=== PATIENT | male | born 1960 | race Caucasian/White ===

== ENCOUNTER 2020-03-01 23:27 | Inpatient (IN) | payer OTHER ==
[~2020-03-01] VITALS: Ht 177.8 cm; Wt 50.1 kg
[2020-03-01] MEDS ORDERED: SODIUM CHLORIDE 0.9% 1,000 ML IV ONE (23:29)
[2020-03-01] MEDS ORDERED: AZITHROMYCIN 500 MG in SODIUM CHLORIDE 0.9% 250 ML IV ONE (23:30)
[2020-03-01] MEDS ORDERED: PROPOFOL 100 ML IV PRN (23:30)
[2020-03-01] MEDS ORDERED: PROPOFOL 100 ML IV ONE (23:31)
[2020-03-01] MEDS ORDERED: MIDAZOLAM 1 MG/ML, 5ML ONE (23:35)
[2020-03-01] MEDS ORDERED: PLEASE ENTER HEIGHT AND WEIGHT MC SCH (23:45)
--- NOTE | 2020-03-02 00:10 | NUR ---
PT SWABBED FOR FLU AND COVID19. DUE TO SWAB, PT HAS BLOOD FROM BILAT NARES AND RESPONDS TO PAINFUL STUMULI. PT CLEANED AND BLEEDING CONTROLLED. NG TUBE CONNECTED TO MED CONT SUCTION WITH MINIMAL OUTPUT. ABDI CATH COLLECTING CLEAR YELLOW URINE. PT APPEARS AT EASE ON VENT. VSS.
[2020-03-02 00:13] LABS: RAPID INFLUENZA A Negative (Negative); RAPID INFLUENZA B Negative (Negative)
[2020-03-02] MEDS ORDERED: TORS20TA2 PO (00:46)
[2020-03-02] MEDS ORDERED: METH4TAB2 PO (00:46)
[2020-03-02] MEDS ORDERED: ALLO100T30 PO (00:46)
[2020-03-02] MEDS ORDERED: OMNIPAQUE 350 MG/ML, 75ML BOTTLE ONE (01:47)
[2020-03-02] MEDS ORDERED: PHARMACY MAY ADJ FOR RENAL FX MC PRN (03:00)
[2020-03-02] MEDS ORDERED: THIAMINE 200 MG in SODIUM CHLORIDE 0.9% 50 ML IV ONE (03:00)
[2020-03-02] MEDS ORDERED: FAMOTIDINE 20 MG/2 ML IV SCH (03:00)
[2020-03-02] MEDS ORDERED: hydrALAzine 20 MG/ML, 1ML IVPush PRN (03:00)
[2020-03-02] MEDS ORDERED: HEPARIN 5,000 UNITS/ML, 1ML SQ SCH ×2 (03:00→07:00)
[2020-03-02] MEDS ORDERED: LACTATED RINGERS 1,000 ML IV SCH (03:00)
[2020-03-02] MEDS ORDERED: ACETAMINOPHEN 650 MG SUPP PR PRN (03:00)
[2020-03-02] MEDS ORDERED: ONDANSETRON 2MG/ML, 2ML IVPush PRN (03:00)
[2020-03-02] MEDS: AZITHROMYCIN 500 MG in SODIUM CHLORIDE 0.9% 250 ML IV SCH (03:25)
[2020-03-02 03:58] LABS: BASOPHILS # (AUTO) 0.03 x10^3/uL (0-0.1); BASOPHILS % (AUTO) 0 % (0-1); EOSINOPHILS % (AUTO) 0 % (1-7); LYMPHOCYTES # (AUTO) 0.49 x10^3/uL (1-3.4); LYMPHOCYTES % (AUTO) 5 % (22-44); MD NO; MEAN CORPUSCULAR HEMOGLOBIN 31.1 pg (27.5-34.5); MEAN CORPUSCULAR HGB CONC 31.5 g/dL (33.2-36.2); MEAN CORPUSCULAR VOLUME 98.9 fL (81-97); MEAN PLATELET VOLUME 10.8 fL (7.4-10.4); MONOCYTES # (AUTO) 0.08 x10^3/uL (0.2-0.8); MONOCYTES % (AUTO) 1 % (2-9); NEUTROPHILS # (AUTO) 9.86 x10^3/uL (1.8-6.8); NEUTROPHILS % (AUTO) 94 % (42-75); PLATELET COUNT 135 x10^3/uL (130-400); RED BLOOD COUNT 3.71 x10^6/uL (4.38-5.82); RED CELL DISTRIBUTION WIDTH 17.2 % (9.4-14.8)
[2020-03-02 04:11] LABS: ALBUMIN 2.6 g/dL (3.4-5.0); ANION GAP 6 mmol/L (5-15); CALCIUM 8.2 mg/dL (8.5-10.1); CHLORIDE 112 mmol/L (98-107); D-DIMER 1.54 ug/mlFEU (0.00-0.52); INTERNATIONAL NORMALIZED RATIO 1.26 (0.93-1.1); PROTHROMBIN TIME 13.4 Seconds (9.6-11.5)
[2020-03-02 04:14] LABS: ALANINE AMINOTRANSFERASE 28 U/L (12-78); ALKALINE PHOSPHATASE 168 U/L (45-117); BILIRUBIN,TOTAL 0.5 mg/dL (0.2-1.0); CREATININE 1.42 mg/dL (0.7-1.3); TOTAL PROTEIN 6.2 g/dL (6.4-8.2); TRIGLYCERIDES 59 mg/dL (50-200)
[2020-03-02 04:56] VITALS: BP 187/93
[2020-03-02 06:49] LABS: AMPHETAMINE SCREEN, URINE Negative (Negative); BARBITURATE SCREEN, URINE Negative (Negative); BENZODIAZEPINE SCREEN, URINE Positive (Negative); CANNABINOID SCREEN, URINE Negative (Negative); COCAINE SCREEN, URINE Negative (Negative); METHADONE SCREEN, URINE Negative (Negative); OPIATE SCREEN, URINE Negative (Negative)
[2020-03-02] MEDS ORDERED: PROPOFOL 100 ML IV PRN (06:57)
[2020-03-02] MEDS ORDERED: NOREPINEPHRINE 8 MG in SODIUM CHLORIDE 0.9% 242 ML IV PRN (06:57)
[2020-03-02] MEDS ORDERED: GLUCAGON 1 MG IM PRN ×2 (07:00→11:00)
[2020-03-02] MEDS ORDERED: DEXTROSE 4 GM TAB.CHEW PO PRN ×2 (07:00→11:00)
[2020-03-02] MEDS ORDERED: DEXTROSE 50%, 50ML SYRINGE IVPush PRN ×2 (07:00→11:00)
[2020-03-02] MEDS ORDERED: LACTULOSE 20 GM/30 ML UDC NG PRN (07:00)
[2020-03-02] MEDS ORDERED: ACETAMINOPHEN 650 MG/20.3 ML UDC PO/NG PRN (07:00)
[2020-03-02] MEDS: FAMOTIDINE 20 MG/2 ML IV SCH ×2 (07:00→19:50)
[2020-03-02] MEDS ORDERED: SENNA/DOCUSATE TABLET NG PRN (07:00)
[2020-03-02] MEDS ORDERED: THIAMINE 100MG TABLET PO ONE (07:00)
[2020-03-02] MEDS ORDERED: SENNA 176 MG/5 ML ORAL SOL NG PRN (07:00)
[2020-03-02] MEDS ORDERED: FENTANYL PF 100 MCG/2ML IVPush PRN (07:00)
[2020-03-02] MEDS ORDERED: BISACODYL 10 MG SUPP PR PRN (07:00)
[2020-03-02] MEDS ORDERED: LIDOCAINE-MPF 1%, 2ML ENDO PRN (07:00)
[2020-03-02] MEDS ORDERED: PHARMACY MAY ADJ FOR RENAL FX MC SCH (07:00)
[2020-03-02] MEDS: ALBUTEROL/IPRATROPIUM 2.5MG/0.5MG, 3 ML INLINE SCH ×5 (07:20→23:00)
[2020-03-02] MEDS: HEPARIN 5,000 UNITS/ML, 1ML SQ SCH ×3 (08:14→23:37)
[2020-03-02] MEDS: SODIUM CHLORIDE FLUSH 10ML SYR IVF SCH ×3 (08:15→19:51)
[2020-03-02] MEDS ORDERED: ZINC SULFATE 220 MG CAPSULE PO SCH (09:00)
[2020-03-02] MEDS ORDERED: CHOLECALCIFEROL 5,000u TAB PO SCH (09:00)
[2020-03-02] MEDS ORDERED: HYDROXYCHLOROQUINE 200 MG TABLET PO SCH (10:00)
[2020-03-02] MEDS: CHOLECALCIFEROL 5,000u TAB PO SCH (10:00)
[2020-03-02] MEDS: ZINC SULFATE 220 MG CAPSULE PO SCH (10:00)
[2020-03-02] MEDS: ASCORBIC ACID 500 MG TABLET PO SCH (10:59)
[2020-03-02] MEDS: PLAQUENIL 200MG/8ML ORAL SUSP PO SCH ×2 (11:00→19:54)
[2020-03-02] MEDS: PROPOFOL 100 ML IV PRN (11:02)
[2020-03-02] MEDS: NICOTINE 14MG/24 HR PATCH.TD24 TD SCH (12:08)
[2020-03-02] MEDS: CEFTRIAXONE PMX 1GM/50ML 50 ML IV SCH (17:57)
[2020-03-02] MEDS: BUDESONIDE 0.5 MG/2 ML INHA INH SCH (19:10)
[2020-03-02] MEDS ORDERED: HYDROXYCHLOROQUINE 200 MG TABLET ONE (19:52)
[2020-03-02] MEDS ORDERED: BUDESONIDE 0.5 MG/2 ML INHA INH SCH (21:00)
[2020-03-03] MEDS: ALBUTEROL/IPRATROPIUM 2.5MG/0.5MG, 3 ML INLINE SCH ×6 (02:30→22:55)
[2020-03-03] MEDS: AZITHROMYCIN 500 MG in SODIUM CHLORIDE 0.9% 250 ML IV SCH (03:25)
[2020-03-03 03:52] LABS: BASOPHILS # (AUTO) 0.01 x10^3/uL (0-0.1); BASOPHILS % (AUTO) 0 % (0-1); EOSINOPHILS % (AUTO) 0 % (1-7); LYMPHOCYTES # (AUTO) 1.07 x10^3/uL (1-3.4); LYMPHOCYTES % (AUTO) 9 % (22-44); MD NO; MEAN CORPUSCULAR HEMOGLOBIN 31.5 pg (27.5-34.5); MEAN CORPUSCULAR HGB CONC 32.4 g/dL (33.2-36.2); MEAN CORPUSCULAR VOLUME 97.1 fL (81-97); MEAN PLATELET VOLUME 10.8 fL (7.4-10.4); MONOCYTES # (AUTO) 0.82 x10^3/uL (0.2-0.8); MONOCYTES % (AUTO) 7 % (2-9); NEUTROPHILS % (AUTO) 85 % (42-75); PLATELET COUNT 125 x10^3/uL (130-400); RED BLOOD COUNT 3.42 x10^6/uL (4.38-5.82); RED CELL DISTRIBUTION WIDTH 16.8 % (9.4-14.8)
[2020-03-03 04:00] LABS: ALBUMIN 2.6 g/dL (3.4-5.0); ANION GAP 4 mmol/L (5-15); CALCIUM 8.8 mg/dL (8.5-10.1); CHLORIDE 114 mmol/L (98-107)
[2020-03-03 04:09] LABS: ALANINE AMINOTRANSFERASE 25 U/L (12-78); ALKALINE PHOSPHATASE 140 U/L (45-117); BILIRUBIN,TOTAL 0.5 mg/dL (0.2-1.0); CREATININE 1.19 mg/dL (0.7-1.3)
[2020-03-03] MEDS: FAMOTIDINE 20 MG/2 ML IV SCH ×2 (05:08→21:57)
[2020-03-03] MEDS: PROPOFOL 100 ML IV PRN (05:13)
[2020-03-03] MEDS ORDERED: ALBUTEROL SULFATE 2.5 MG/3 ML ONE (06:40)
[2020-03-03] MEDS ORDERED: IPRATROPIUM 0.5 MG/2.5 ML INHA ONE (06:40)
[2020-03-03] MEDS: NICOTINE 14MG/24 HR PATCH.TD24 TD SCH (08:11)
[2020-03-03] MEDS: CHOLECALCIFEROL 5,000u TAB PO SCH (08:12)
[2020-03-03] MEDS: HEPARIN 5,000 UNITS/ML, 1ML SQ SCH ×2 (08:13→16:42)
[2020-03-03] MEDS: ZINC SULFATE 220 MG CAPSULE PO SCH (08:13)
[2020-03-03] MEDS: ASCORBIC ACID 500 MG TABLET PO SCH (08:13)
[2020-03-03] MEDS: SODIUM CHLORIDE FLUSH 10ML SYR IVF SCH ×2 (08:13→21:57)
[2020-03-03] MEDS ORDERED: FUROSEMIDE 20 MG/2 ML IV ONE (09:39)
[2020-03-03] MEDS ORDERED: AMLODIPINE 5 MG TABLET PO SCH (10:00)
[2020-03-03] MEDS: BUDESONIDE 0.5 MG/2 ML INHA INH SCH ×2 (10:48→18:15)
[2020-03-03] MEDS ORDERED: THIAMINE 100MG TABLET PO ONE (11:00)
[2020-03-03] MEDS: POTASSIUM CHLORIDE 10% 20 MEQ/15 ML UDC PO SCH (11:12)
[2020-03-03] MEDS: PLAQUENIL 200MG/8ML ORAL SUSP PO SCH ×2 (13:23→21:56)
[2020-03-03] MEDS: niCARdipine 20 MG CAPSULE PO SCH ×2 (16:42→21:56)
[2020-03-03] MEDS: FUROSEMIDE 20 MG/2 ML IV SCH (16:42)
[2020-03-03] MEDS: CEFTRIAXONE PMX 1GM/50ML 50 ML IV SCH (16:43)
[2020-03-03] MEDS: METOPROLOL TARTRATE 50 MG TAB PO SCH (17:21)
[2020-03-03] MEDS: LISINOPRIL 20 MG TABLET PO SCH (21:56)
[2020-03-04] MEDS: HEPARIN 5,000 UNITS/ML, 1ML SQ SCH ×3 (00:25→17:04)
[2020-03-04] MEDS: AZITHROMYCIN 500 MG in SODIUM CHLORIDE 0.9% 250 ML IV SCH (02:50)
[2020-03-04] MEDS: ALBUTEROL/IPRATROPIUM 2.5MG/0.5MG, 3 ML INLINE SCH ×2 (03:30→07:06)
[2020-03-04 05:00] LABS: BASOPHILS # (AUTO) 0.04 x10^3/uL (0-0.1); BASOPHILS % (AUTO) 0 % (0-1); EOSINOPHILS # (AUTO) 0.01 x10^3/uL (0-0.4); EOSINOPHILS % (AUTO) 0 % (1-7); LYMPHOCYTES # (AUTO) 1.09 x10^3/uL (1-3.4); LYMPHOCYTES % (AUTO) 10 % (22-44); MD NO; MEAN CORPUSCULAR HEMOGLOBIN 31.5 pg (27.5-34.5); MEAN CORPUSCULAR HGB CONC 32.2 g/dL (33.2-36.2); MEAN CORPUSCULAR VOLUME 97.9 fL (81-97); MEAN PLATELET VOLUME 10.7 fL (7.4-10.4); MONOCYTES # (AUTO) 0.81 x10^3/uL (0.2-0.8); MONOCYTES % (AUTO) 8 % (2-9); NEUTROPHILS % (AUTO) 82 % (42-75); PLATELET COUNT 125 x10^3/uL (130-400); RED BLOOD COUNT 3.41 x10^6/uL (4.38-5.82); RED CELL DISTRIBUTION WIDTH 17.6 % (9.4-14.8)
[2020-03-04 05:04] LABS: ALBUMIN 2.6 g/dL (3.4-5.0); ANION GAP 6 mmol/L (5-15); CALCIUM 8.9 mg/dL (8.5-10.1); CHLORIDE 115 mmol/L (98-107)
[2020-03-04 05:14] LABS: ALANINE AMINOTRANSFERASE 19 U/L (12-78); ALKALINE PHOSPHATASE 135 U/L (45-117); BILIRUBIN, DIRECT 0.2 mg/dL (0.1-0.2); BILIRUBIN,INDIRECT 0.6 mg/dL (0.0-2.0); BILIRUBIN,TOTAL 0.8 mg/dL (0.2-1.0); CREATININE 1.64 mg/dL (0.7-1.3); TOTAL PROTEIN 6.2 g/dL (6.4-8.2)
[2020-03-04] MEDS: METOPROLOL TARTRATE 50 MG TAB PO SCH ×2 (06:26→17:05)
[2020-03-04] MEDS: FUROSEMIDE 20 MG/2 ML IV SCH ×2 (06:26→17:04)
[2020-03-04] MEDS: FAMOTIDINE 20 MG/2 ML IV SCH (06:26)
[2020-03-04] MEDS: ZINC SULFATE 220 MG CAPSULE PO SCH (08:31)
[2020-03-04] MEDS: POTASSIUM CHLORIDE 10% 20 MEQ/15 ML UDC PO SCH (08:31)
[2020-03-04] MEDS: CHOLECALCIFEROL 5,000u TAB PO SCH (08:31)
[2020-03-04] MEDS: NICOTINE 14MG/24 HR PATCH.TD24 TD SCH (08:32)
[2020-03-04] MEDS: LISINOPRIL 20 MG TABLET PO SCH ×2 (08:32→21:36)
[2020-03-04] MEDS: THIAMINE 100MG TABLET PO SCH (08:32)
[2020-03-04] MEDS ORDERED: niFEDipine ER 60 MG TABLET.ER PO SCH (09:00)
[2020-03-04] MEDS: SODIUM CHLORIDE FLUSH 10ML SYR IVF SCH ×2 (09:00→21:36)
[2020-03-04] MEDS: niCARdipine 20 MG CAPSULE PO SCH ×3 (09:00→21:36)
[2020-03-04] MEDS: ASCORBIC ACID 500 MG TABLET PO SCH (09:00)
[2020-03-04] MEDS ORDERED: ALBUTEROL/IPRATROPIUM 2.5MG/0.5MG, 3 ML NPPB SCH (11:00)
[2020-03-04] MEDS: PLAQUENIL 200MG/8ML ORAL SUSP PO SCH ×2 (11:30→21:37)
[2020-03-04] MEDS: ALBUTEROL-IPRATROPIUM MDI INH INH SCH ×3 (12:00→19:55)
[2020-03-04] MEDS: CEFTRIAXONE PMX 1GM/50ML 50 ML IV SCH (17:54)
[2020-03-05] MEDS: HEPARIN 5,000 UNITS/ML, 1ML SQ SCH (00:58)
[2020-03-05] MEDS: AZITHROMYCIN 500 MG in SODIUM CHLORIDE 0.9% 250 ML IV SCH (02:53)
[2020-03-05] MEDS: METOPROLOL TARTRATE 50 MG TAB PO SCH ×2 (05:39→17:24)
[2020-03-05 06:36] LABS: BASOPHILS # (AUTO) 0.05 x10^3/uL (0-0.1); BASOPHILS % (AUTO) 1 % (0-1); EOSINOPHILS # (AUTO) 0.06 x10^3/uL (0-0.4); EOSINOPHILS % (AUTO) 1 % (1-7); LYMPHOCYTES # (AUTO) 0.78 x10^3/uL (1-3.4); LYMPHOCYTES % (AUTO) 7 % (22-44); MD NO; MEAN CORPUSCULAR HEMOGLOBIN 31.6 pg (27.5-34.5); MEAN CORPUSCULAR HGB CONC 32.2 g/dL (33.2-36.2); MEAN CORPUSCULAR VOLUME 98.3 fL (81-97); MEAN PLATELET VOLUME 10.2 fL (7.4-10.4); MONOCYTES # (AUTO) 0.86 x10^3/uL (0.2-0.8); MONOCYTES % (AUTO) 8 % (2-9); NEUTROPHILS # (AUTO) 8.84 x10^3/uL (1.8-6.8); NEUTROPHILS % (AUTO) 84 % (42-75); PLATELET COUNT 124 x10^3/uL (130-400); RED BLOOD COUNT 3.51 x10^6/uL (4.38-5.82); RED CELL DISTRIBUTION WIDTH 16.9 % (9.4-14.8)
[2020-03-05 06:48] LABS: ANION GAP 5 mmol/L (5-15); CHLORIDE 112 mmol/L (98-107); CREATININE 1.09 mg/dL (0.7-1.3); TRIGLYCERIDES 122 mg/dL (50-200)
[2020-03-05] MEDS: ALBUTEROL-IPRATROPIUM MDI INH INH SCH ×4 (07:50→20:27)
[2020-03-05] MEDS: FUROSEMIDE 20 MG/2 ML IV SCH ×2 (08:17→16:46)
[2020-03-05] MEDS: FAMOTIDINE 20 MG/2 ML IV SCH (08:18)
[2020-03-05] MEDS: ZINC SULFATE 220 MG CAPSULE PO SCH (08:19)
[2020-03-05] MEDS: ASCORBIC ACID 500 MG TABLET PO SCH (08:19)
[2020-03-05] MEDS: LISINOPRIL 20 MG TABLET PO SCH ×2 (08:20→20:27)
[2020-03-05] MEDS: SODIUM CHLORIDE FLUSH 10ML SYR IVF SCH ×2 (08:21→20:27)
[2020-03-05] MEDS: POTASSIUM CHLORIDE 10% 20 MEQ/15 ML UDC PO SCH (09:24)
[2020-03-05] MEDS: THIAMINE 100MG TABLET PO SCH (09:25)
[2020-03-05] MEDS: ENOXAPARIN 40 MG/0.4 ML SQ SCH (09:25)
[2020-03-05] MEDS: CHOLECALCIFEROL 5,000u TAB PO SCH (09:26)
[2020-03-05] MEDS: DOXAZOSIN 2MG TABLET PO SCH (09:26)
[2020-03-05] MEDS: PLAQUENIL 200MG/8ML ORAL SUSP PO SCH (10:47)
[2020-03-05] MEDS: CEFTRIAXONE PMX 1GM/50ML 50 ML IV SCH (16:46)
[2020-03-05] MEDS: HYDROXYCHLOROQUINE 200 MG TABLET PO SCH (20:27)
[2020-03-06] MEDS: AZITHROMYCIN 500 MG in SODIUM CHLORIDE 0.9% 250 ML IV SCH (02:56)
[2020-03-06 03:58] LABS: BASOPHILS # (AUTO) 0.06 x10^3/uL (0-0.1); BASOPHILS % (AUTO) 1 % (0-1); EOSINOPHILS # (AUTO) 0.35 x10^3/uL (0-0.4); EOSINOPHILS % (AUTO) 4 % (1-7); LYMPHOCYTES # (AUTO) 0.85 x10^3/uL (1-3.4); LYMPHOCYTES % (AUTO) 10 % (22-44); MD NO; MEAN CORPUSCULAR HEMOGLOBIN 31.4 pg (27.5-34.5); MEAN CORPUSCULAR HGB CONC 32.4 g/dL (33.2-36.2); MEAN PLATELET VOLUME 10.1 fL (7.4-10.4); MONOCYTES # (AUTO) 0.57 x10^3/uL (0.2-0.8); MONOCYTES % (AUTO) 7 % (2-9); NEUTROPHILS # (AUTO) 6.77 x10^3/uL (1.8-6.8); NEUTROPHILS % (AUTO) 79 % (42-75); PLATELET COUNT 108 x10^3/uL (130-400); RED BLOOD COUNT 3.27 x10^6/uL (4.38-5.82); RED CELL DISTRIBUTION WIDTH 16.6 % (9.4-14.8)
[2020-03-06 04:06] LABS: ANION GAP 4 mmol/L (5-15); CALCIUM 8.7 mg/dL (8.5-10.1); CHLORIDE 109 mmol/L (98-107); CREATININE 1.03 mg/dL (0.7-1.3)
[2020-03-06] MEDS: METOPROLOL TARTRATE 50 MG TAB PO SCH ×2 (05:54→18:33)
[2020-03-06] MEDS: ALBUTEROL-IPRATROPIUM MDI INH INH SCH ×4 (07:00→20:00)
[2020-03-06] MEDS ORDERED: POTASSIUM CHLORIDE 20 MEQ TAB.ER.PRT PO SCH (09:00)
[2020-03-06] MEDS: FUROSEMIDE 20 MG/2 ML IV SCH ×2 (09:02→17:24)
[2020-03-06] MEDS: HYDROXYCHLOROQUINE 200 MG TABLET PO SCH (09:07)
[2020-03-06] MEDS: ZINC SULFATE 220 MG CAPSULE PO SCH (09:07)
[2020-03-06] MEDS: LISINOPRIL 20 MG TABLET PO SCH ×2 (09:08→20:53)
[2020-03-06] MEDS: CHOLECALCIFEROL 5,000u TAB PO SCH (09:08)
[2020-03-06] MEDS: DOXAZOSIN 2MG TABLET PO SCH (09:08)
[2020-03-06] MEDS: SODIUM CHLORIDE FLUSH 10ML SYR IVF SCH (09:09)
[2020-03-06] MEDS: FAMOTIDINE 20 MG/2 ML IV SCH (09:09)
[2020-03-06] MEDS: ENOXAPARIN 40 MG/0.4 ML SQ SCH (11:06)
[2020-03-06 16:00] VITALS: BP 164/77
[2020-03-06] MEDS: CEFTRIAXONE PMX 1GM/50ML 50 ML IV SCH (17:24)
[2020-03-06 19:10] VITALS: BP 133/68
[2020-03-07 01:09] VITALS: BP 148/65
[2020-03-07 05:39] LABS: BASOPHILS # (AUTO) 0.06 x10^3/uL (0-0.1); BASOPHILS % (AUTO) 1 % (0-1); EOSINOPHILS # (AUTO) 0.35 x10^3/uL (0-0.4); EOSINOPHILS % (AUTO) 4 % (1-7); LYMPHOCYTES # (AUTO) 0.86 x10^3/uL (1-3.4); LYMPHOCYTES % (AUTO) 11 % (22-44); MD NO; MEAN CORPUSCULAR HEMOGLOBIN 31.4 pg (27.5-34.5); MEAN CORPUSCULAR HGB CONC 32.4 g/dL (33.2-36.2); MEAN CORPUSCULAR VOLUME 96.9 fL (81-97); MEAN PLATELET VOLUME 11.1 fL (7.4-10.4); MONOCYTES # (AUTO) 0.64 x10^3/uL (0.2-0.8); MONOCYTES % (AUTO) 8 % (2-9); NEUTROPHILS # (AUTO) 6.22 x10^3/uL (1.8-6.8); NEUTROPHILS % (AUTO) 77 % (42-75); PLATELET COUNT 112 x10^3/uL (130-400); RED BLOOD COUNT 3.39 x10^6/uL (4.38-5.82)
[2020-03-07 05:52] LABS: ANION GAP 6 mmol/L (5-15); CALCIUM 8.9 mg/dL (8.5-10.1); CHLORIDE 108 mmol/L (98-107)
[2020-03-07] MEDS: METOPROLOL TARTRATE 50 MG TAB PO SCH ×2 (05:53→17:48)
[2020-03-07] MEDS: SODIUM CHLORIDE FLUSH 10ML SYR IVF SCH ×3 (05:55→20:34)
[2020-03-07 06:00] LABS: CREATININE 1.23 mg/dL (0.7-1.3)
[2020-03-07] MEDS: ALBUTEROL-IPRATROPIUM MDI INH INH SCH (07:00)
[2020-03-07 08:08] VITALS: BP 152/67
[2020-03-07] MEDS: ENOXAPARIN 40 MG/0.4 ML SQ SCH ×3 (09:38→09:56)
[2020-03-07] MEDS: LISINOPRIL 20 MG TABLET PO SCH ×2 (09:38→20:34)
[2020-03-07] MEDS: FUROSEMIDE 20 MG/2 ML IV SCH ×2 (09:38→17:48)
[2020-03-07] MEDS: DOXAZOSIN 2MG TABLET PO SCH (09:39)
[2020-03-07 13:32] VITALS: BP 136/64
[2020-03-07] MEDS: ALBUTEROL/IPRATROPIUM 2.5MG/0.5MG, 3 ML NPPB SCH ×2 (15:00→20:00)
[2020-03-07] MEDS: CEFTRIAXONE PMX 1GM/50ML 50 ML IV SCH (17:47)
[2020-03-07 20:29] VITALS: BP 152/74
[2020-03-08 01:27] VITALS: BP 152/69
[2020-03-08 04:56] LABS: BASOPHILS # (AUTO) 0.05 x10^3/uL (0-0.1); BASOPHILS % (AUTO) 1 % (0-1); EOSINOPHILS # (AUTO) 0.35 x10^3/uL (0-0.4); EOSINOPHILS % (AUTO) 5 % (1-7); LYMPHOCYTES # (AUTO) 0.93 x10^3/uL (1-3.4); LYMPHOCYTES % (AUTO) 13 % (22-44); MD NO; MEAN CORPUSCULAR HEMOGLOBIN 31.6 pg (27.5-34.5); MEAN CORPUSCULAR HGB CONC 32.6 g/dL (33.2-36.2); MEAN CORPUSCULAR VOLUME 96.8 fL (81-97); MEAN PLATELET VOLUME 11.6 fL (7.4-10.4); MONOCYTES # (AUTO) 0.68 x10^3/uL (0.2-0.8); MONOCYTES % (AUTO) 9 % (2-9); NEUTROPHILS # (AUTO) 5.28 x10^3/uL (1.8-6.8); NEUTROPHILS % (AUTO) 73 % (42-75); PLATELET COUNT 128 x10^3/uL (130-400); RED BLOOD COUNT 3.46 x10^6/uL (4.38-5.82); RED CELL DISTRIBUTION WIDTH 16.1 % (9.4-14.8)
[2020-03-08 05:03] LABS: ANION GAP 4 mmol/L (5-15); CALCIUM 8.7 mg/dL (8.5-10.1); CHLORIDE 107 mmol/L (98-107); CREATININE 1.07 mg/dL (0.7-1.3); TRIGLYCERIDES 115 mg/dL (50-200)
[2020-03-08 05:34] VITALS: BP 154/67
[2020-03-08] MEDS: METOPROLOL TARTRATE 50 MG TAB PO SCH ×2 (05:36→18:36)
[2020-03-08] MEDS: ALBUTEROL/IPRATROPIUM 2.5MG/0.5MG, 3 ML NPPB SCH ×4 (07:00→19:30)
[2020-03-08] MEDS: FUROSEMIDE 20 MG/2 ML IV SCH ×2 (07:30→17:00)
[2020-03-08] MEDS: ENOXAPARIN 40 MG/0.4 ML SQ SCH (08:00)
[2020-03-08] MEDS: LISINOPRIL 20 MG TABLET PO SCH ×2 (09:00→20:13)
[2020-03-08] MEDS: DOXAZOSIN 2MG TABLET PO SCH (09:00)
[2020-03-08 09:04] VITALS: BP 148/70
[2020-03-08] MEDS: SODIUM CHLORIDE FLUSH 10ML SYR IVF SCH ×2 (11:28→20:13)
[2020-03-08] MEDS ORDERED: CHLORHEXIDINE 15 ML UDC MM STA (11:32)
[2020-03-08] MEDS ORDERED: LISI-170 PO (12:25)
[2020-03-08] MEDS ORDERED: DOXA2TAB9 PO (12:25)
[2020-03-08] MEDS ORDERED: METO50TA82 PO (12:25)
[2020-03-08] MEDS ORDERED: FENTANYL PF 100 MCG/2ML ONE ×2 (12:29→13:19)
[2020-03-08] MEDS ORDERED: CEFD300C37 PO (12:35)
[2020-03-08] MEDS ORDERED: ACETAMINOPHEN 325 MG TABLET PO PRN (13:30)
[2020-03-08] MEDS ORDERED: HYDROmorphone 2 MG/ML, 1ML IVPush PRN (13:30)
[2020-03-08] MEDS ORDERED: ALBUTEROL SULFATE 2.5 MG/3 ML NPPB PRN (13:30)
[2020-03-08] MEDS ORDERED: LABETALOL 5MG/ML, 20ML IV PRN (13:30)
[2020-03-08] MEDS ORDERED: PROMETHAZINE 25 MG/ML, 1ML IV PRN (13:30)
[2020-03-08] MEDS ORDERED: MEPERIDINE/PF 25MG/0.5ML IVPush PRN (13:30)
[2020-03-08] MEDS ORDERED: DIAZEPAM 5 MG/ML, 2ML IVPush PRN (13:30)
[2020-03-08] MEDS ORDERED: hydrALAzine 20 MG/ML, 1ML IV PRN (13:30)
[2020-03-08] MEDS ORDERED: KETOROLAC 30 MG/1 ML IV PRN (13:30)
[2020-03-08] MEDS ORDERED: OXYcodone 5 MG/5 ML ORAL.SOL UDC PO PRN (13:30)
[2020-03-08] MEDS ORDERED: FENTANYL PF 100 MCG/2ML IV PRN (13:30)
[2020-03-08] MEDS ORDERED: DEXAMETHASONE 4 MG/ML, 1ML ONE (13:49)
[2020-03-08] MEDS ORDERED: SUCCINYLCHOLINE 20 MG/ML, 10ML ONE (13:49)
[2020-03-08] MEDS ORDERED: GLYCOPYRROLATE 0.2MG/1ML, 5ML ONE (13:49)
[2020-03-08] MEDS ORDERED: SUGAMMADEX 200 MG/2 ML IVPush ONE (13:49)
[2020-03-08] MEDS ORDERED: ROCURONIUM 10MG/ML,5ML ONE (13:49)
[2020-03-08] MEDS ORDERED: NEOSTIGMINE 1 MG/ML, 10ML ONE (13:49)
[2020-03-08] MEDS ORDERED: CEFAZOLIN 1,000 MG ONE (13:49)
[2020-03-08] MEDS ORDERED: ONDANSETRON 2MG/ML, 2ML ONE (13:49)
[2020-03-08] MEDS ORDERED: PROPOFOL 10 MG/ML, 20ML ONE (13:49)
[2020-03-08] MEDS ORDERED: ALBUTEROL/IPRATROPIUM 2.5MG/0.5MG, 3 ML ONE (14:26)
[2020-03-08 16:11] VITALS: BP 149/66
[2020-03-08] MEDS: CEFTRIAXONE PMX 1GM/50ML 50 ML IV SCH (17:24)
[2020-03-08 19:39] VITALS: BP 153/63
== END 2020-03-08 21:30 | disposition home or self-care (01) | DRG 853 ==
LOC: ED 23:59 → EDIP 03-02 01:01 → ICU 03-02 01:45 → 3N 03-06 13:59
PROVIDERS: ADMIT Family Medicine; ATTEND Family Medicine
PROC: 5A1945Z Respiratory Ventilation, 24-96 Consecutive Hours (ICD-10-PCS; 2020-03-02)
PROC: 0BH17EZ Insertion of Endotracheal Airway into Trachea, Via Natural or Artificial Opening (ICD-10-PCS; 2020-03-02)
PROC: 0BBD3ZX Excision of Right Middle Lung Lobe, Percutaneous Approach, Diagnostic (ICD-10-PCS; 2020-03-08)
PROC: 0BJ08ZZ Inspection of Tracheobronchial Tree, Via Natural or Artificial Opening Endoscopic (ICD-10-PCS; 2020-03-08)
PROC: 07B73ZX Excision of Thorax Lymphatic, Percutaneous Approach, Diagnostic (ICD-10-PCS; principal; 2020-03-08 12:00)
DX: A41.9 Sepsis, unspecified organism (principal); J18.9 Pneumonia, unspecified organism; J96.01 Acute respiratory failure with hypoxia; J96.02 Acute respiratory failure with hypercapnia; N17.0 Acute kidney failure with tubular necrosis; Z99.11 Dependence on respirator [ventilator] status; D64.9 Anemia, unspecified; D75.89 Other specified diseases of blood and blood-forming organs; E78.5 Hyperlipidemia, unspecified; E87.5 Hyperkalemia; F17.210 Nicotine dependence, cigarettes, uncomplicated; I11.0 Hypertensive heart disease with heart failure; I27.20 Pulmonary hypertension, unspecified; I50.9 Heart failure, unspecified; J43.9 Emphysema, unspecified; K80.20 Calculus of gallbladder without cholecystitis without obstruction; N26.1 Atrophy of kidney (terminal); Z95.2 Presence of prosthetic heart valve; Z03.818 Encounter for observation for suspected exposure to other biological agents ruled out
CPT/HCPCS: 31629; 36415; 36600; 71045; 71250; 71260; 76000; 80048; 80053; 80076; 80307; 82550; 82607; 82728; 82803; 83036; 83605; 83615; 83735; 83880; 84100; 84145; 84443; 84478; 84484; 85025; 85379; 85610; 86140; 87040; 87070; 87081; 87205; 87400; 88172; 88173; 88177; 88305; 88341; 88342; 88360; 93005; 93306; 94002; 94003; 94640; G0378; J0456; J0690; J0696; J1100; J1644; J1650; J2405; J2704; J2710; J3010; J3411; J7626; Q9967; J0330; J0360; J1940; J3490; J7030; J7050; J7120; U0001